=== PATIENT | female | born 1955 | race Caucasian/White ===

== ENCOUNTER → 2018-10-28 15:12 | Outpatient (CLI) | payer OTHER, SELFPAY | PROVIDERS: PCP Internal Medicine Adolescent Medicine; Visit Provider Internal Medicine Adolescent Medicine | DX: I63.9 Cerebral infarction, unspecified (principal) ==

== ENCOUNTER → 2018-10-29 08:41 | Outpatient (CLI) | payer OTHER, SELFPAY ==
--- NOTE | 2018-10-29 08:43 | MR_ITS ---
MR head/brain wo con HISTORY: ITS.REASON: ACUTE ISCHEMIC STROKE ORDERING PHYSICIAN: John Terrell MD PATIENT AGE: 63 years Comparison: 07/18/2018. TECHNIQUE: Standard multiplanar multiecho sequences are performed without contrast. FINDINGS: There are no areas are restricted diffusion. There is no mass, acute hemorrhage or extra-axial fluid collection. An Ventricles, sulci, cortical areas and brain stem structures are normal. There is a 2 mm focus of CSF signal involving the proximal left parietal deep white matter. There is no surrounding FLAIR signal in this area. There are a few other punctate foci measuring 1 or 2 mm in size in the frontal and parietal deep white matter areas bilaterally. Visualized vessels are patent and the area of the foramen magnum is normal. Visualized optic pathway structures appear normal. Impression: No acute process and no acute infarctions. White matter findings are very nonspecific and could be from mild chronic microvascular ischemic change or sequela of migraine headache. 2.0 mm deep left proximal parietal white matter findings could be old lacunar infarct or prominent perivascular space.
== END ==
PROVIDERS: PCP Internal Medicine Adolescent Medicine; Visit Provider Internal Medicine Adolescent Medicine
DX: I63.9 Cerebral infarction, unspecified (principal)
CPT/HCPCS: 70551

== ENCOUNTER → 2019-03-23 08:08 | Outpatient (CLI) | payer OTHER, SELFPAY ==
--- NOTE | 2019-03-23 08:11 | CT_ITS ---
PROCEDURE: CT LUNG SCREENING CLINICAL INDICATION: HX TOBACCO USE Forty-seven pack-year smoking history, asymptomatic for lung cancer COMPARISON: No exams were available for comparison TECHNIQUE: The exam was performed on a GE Light Speed [address] scanner using 2.90 mGy CTDI. A low dose helical CT CHEST was performed on a multi-detector scanner. All CT scans at the facility use one or more dose reduction, viz: automated exposure control, ma/kV adjustment per patient size (including targeted exams where dose is matched to indication, i.e. head), or iterative reconstruction technique. The LDCT was performed in a facility that meets the criteria for the screening program. Data regarding this exam was submitted to ACR which is an approved registry. The order for this exam indicates that it came as a result of a lung cancer screening counseling shard decision-making visit that included all the elements required of such a visit including smoking cessation. The radiologist interpreting this exam meets the CMS criteria for the LDCT lung cancer screening program. The exam is reported using the Lung-RADS classification scale and reported to the ACR registry. NOTE: This study was performed for the specific purposes of lung cancer screening and is not an alternative to diagnostic chest CT. RADIATION DOSE: CTDI vol(CT dose Index-volume) = 2.90mG DLP (Dose Length Product) = 91.58 mGcm FINDINGS: No suspicious nodules. Small hiatal hernia. Fatty liver. COPD. Old granulomatous disease. There is sclerosis of the T10 vertebral body on the right nonspecific OTHER FINDINGS: No other pertinent findings evident. IMPRESSION: Lung rads category 1, negative Recommend 12 month LDCT Dictated by: Gentry Shafer MD 03/28/2019 20:37 Electronically signed by Gentry Shafer MD in [place] 03/28/2019 20:37
--- NOTE | 2019-03-23 08:11 | MM_ITS ---
PROCEDURE: MM DIG SCREENING MAMM BI W/CAD CLINICAL INDICATION: SCREENING There is no personal or family history of breast cancer COMPARISON: No exams were available for comparison TECHNIQUE: Standard CC and MLO images were obtained. R2 CAD reviewed. FINDINGS: Diffuse fibroglandular densities are seen the central portions of both breasts. There is a mole marker left breast. There is a questionable area of architectural distortion just deep to the nipple right breast with associated microcalcifications. These calcifications appear most typical of sclerosing adenosis but without previous studies available for comparison would recommend patient return for spot compression magnification views of the area marked on the film, ultrasound may be helpful as well if this proves to be a true lesion. There are normal appearing nodes in both axilla. IMPRESSION: Fibrofatty parenchyma with possible asymmetric density versus architectural distortion right breast BI-RAD Category: 0 Need Additional Imaging Evaluation FOLLOW-UP: IMM Immediate Follow-up Recommended (A letter has been sent to the patient regarding results of the study.) Dictated by: Dr. Castillo Mcclain MD 03/24/2019 20:[address] Castillo Mcclain MD in [place] 03/24/2019 20:24
== END ==
PROVIDERS: PCP Internal Medicine Adolescent Medicine; Visit Provider Internal Medicine Adolescent Medicine
DX: Z87.891 Personal history of nicotine dependence (principal); Z12.2 Encounter for screening for malignant neoplasm of respiratory organs; Z12.31 Encounter for screening mammogram for malignant neoplasm of breast
CPT/HCPCS: 77067

== ENCOUNTER → 2019-04-02 09:21 | Outpatient (CLI) | payer OTHER, SELFPAY ==
--- NOTE | 2019-04-02 09:26 | XR_ITS ---
PROCEDURE: XR DEXA AXIAL SKELETON CLINICAL HISTORY: POST MENOPAUSAL SCREENING COMPARISON: No exams were available for comparison FINDINGS: Lumbar spine (L1 through L4), BMD 0.827, T-score -2.0 Left hip (neck), BMD 0.528, T-score -2.9. Left hip (Total), BMD 0.661, T-score -2.3. IMPRESSION: Osteoporosis. Dictated by: Ky Pope 04/02/2019 11:24 Electronically signed by Ky Pope in [place] 04/02/2019 11:24
--- NOTE | 2019-04-02 10:22 | MM_ITS ---
PROCEDURE: MM DIG MAMM DX UNILAT RT CAD CLINICAL INDICATION: ABNORMAL MAMM COMPARISON: MM DIG SCREENING MAMM BI W/CAD from 03/23/2019 TECHNIQUE: Magnification views right breast. FINDINGS: The questionable area of architectural distortion seen on the mammogram of 03/23/2019 is better seen on the magnification views and I feel simply represents asymmetric glandular elements. There are several microcalcifications which appear to be typical sclerosing adenosis. There is no suspicious cluster of microcalcifications. There is no mass. However since this is a baseline study I would recommend patient return for six-month follow-up magnification views to evaluate for interval stability. IMPRESSION: Mildly asymmetric glandular elements central portion right breast with show shaded microcalcifications most typical of sclerosing adenosis BI-RAD Category: 3 Probably Benign Finding Short Term Follow-up FOLLOW-UP: 6M 6Month Follow-up (A letter has been sent to the patient regarding results of the study.) Dictated by: Dr. Castillo Mcclain MD 04/09/2019 11:[address] Castillo Mcclain MD in [place] 04/09/2019 11:27
== END ==
PROVIDERS: PCP Internal Medicine Adolescent Medicine; Visit Provider Internal Medicine Adolescent Medicine
DX: Z13.820 Encounter for screening for osteoporosis (principal); Z78.0 Asymptomatic menopausal state; R92.8 Other abnormal and inconclusive findings on diagnostic imaging of breast
CPT/HCPCS: 77065; 77080

== ENCOUNTER → 2020-06-16 10:07 | Outpatient (CLI) | payer OTHER, SELFPAY ==
--- NOTE | 2020-06-16 10:11 | MM_ITS ---
PROCEDURE: MM DIG SCREENING MAMM BI W/CAD Digital Breast Tomosynthesis Included CLINICAL INDICATION: SCREENING There is no personal or family history of breast cancer. COMPARISON: MG MM DIG SCREENING MAMM BI W/CAD from 03/23/2019 MG MM DIG MAMM DX UNILAT RT CAD from 04/02/2019 TECHNIQUE: Standard CC and MLO images and 3D Tomosynthesis was obtained. R2 CAD reviewed. FINDINGS: Mild scattered fibroglandular densities are seen in the central portions of both breast. There is a mole marker on each breast and there is a benign-appearing microcalcification right breast. There is no suspicious lesion in either breast and no suspicious microcalcifications. IMPRESSION: . fibrofatty parenchyma with no suspicious lesions seen BI-RAD Category: 2 Benign Finding(s) FOLLOW-UP: 1YR 1 Year Follow-up (A letter has been sent to the patient regarding results of the study.) Dictated by: Dr. Castillo Mcclain MD 06/24/2020 10:15 Dr. Castillo Mcclain MD in [place] 06/24/2020 10:15
== END ==
PROVIDERS: PCP Internal Medicine Adolescent Medicine; Visit Provider Internal Medicine Adolescent Medicine
DX: Z12.31 Encounter for screening mammogram for malignant neoplasm of breast (principal)
CPT/HCPCS: 77063; 77067

== ENCOUNTER → 2020-07-20 07:42 | Outpatient (CLI) | payer OTHER, SELFPAY ==
--- NOTE | 2020-07-20 07:47 | CT_ITS ---
PROCEDURE: CT LUNG SCREENING CLINICAL INDICATION: H/O NICOTINE DEPENDENCE Former smoker Quit smoking 2 years ago 52.5 pack year smoking history COMPARISON: CT CT LUNG SCREENING from 03/23/2019 TECHNIQUE: The exam was performed on a GE Light Speed [address] scanner using 2.90 mGy CTDI. A low dose helical CT CHEST was performed on a multi-detector scanner. All CT scans at the facility use one or more dose reduction, viz: automated exposure control, ma/kV adjustment per patient size (including targeted exams where dose is matched to indication, i.e. head), or iterative reconstruction technique. The LDCT was performed in a facility that meets the criteria for the screening program. Data regarding this exam was submitted to ACR which is an approved registry. The order for this exam indicates that it came as a result of a lung cancer screening counseling shard decision-making visit that included all the elements required of such a visit including smoking cessation. The radiologist interpreting this exam meets the CMS criteria for the LDCT lung cancer screening program. The exam is reported using the Lung-RADS classification scale and reported to the ACR registry. NOTE: This study was performed for the specific purposes of lung cancer screening and is not an alternative to diagnostic chest CT. RADIATION DOSE: CTDI vol(CT dose Index-volume) = 2.90mG DLP (Dose Length Product) = 101.07 mGcm FINDINGS: COPD. Calcified granuloma right lower lobe anteriorly and superiorly. No suspicious nodules. OTHER FINDINGS: Hiatal hernia. Coronary artery calcifications. Scattered small axillary lymph nodes. Mild nonspecific thickening of the distal esophagus. Fatty liver. IMPRESSION: Lung-RADS Category 1 Negative Follow-up: Continue annual screening with LDCT in 12 months Dictated by: Gentry Shafer MD 07/24/2020 16:17 Gentry Shafer MD in [place] 07/24/2020 16:17
== END ==
PROVIDERS: PCP Internal Medicine Adolescent Medicine; Visit Provider Internal Medicine Adolescent Medicine
DX: Z87.891 Personal history of nicotine dependence (principal); Z12.2 Encounter for screening for malignant neoplasm of respiratory organs
CPT/HCPCS: 71271

== ENCOUNTER → 2020-09-20 10:40 | Outpatient (CLI) | payer MEDICARE, SELFPAY ==
--- NOTE | 2020-09-20 10:45 | XR_ITS ---
PROCEDURE: XR ANKLE LT MIN 3V CLINICAL INDICATION: ACUTE LT ANKLE PAIN COMPARISON: No exams were available for comparison FINDINGS: There are mild diffuse degenerative changes and mild soft tissue swelling about the ankle joint. No definite acute fracture or dislocation. If the patient has persistent pain, consider CT or MRI for further assessment. Ankle joint mortise appears intact. IMPRESSION: Mild diffuse degenerative changes and mild soft tissue swelling about the ankle joint with no definite acute fracture or dislocation. See comment above. Dictated by: Emiliano Ponce MD 09/20/2020 12:38 Emiliano Ponce MD in [place] 09/20/2020 12:38
== END ==
PROVIDERS: PCP Internal Medicine Adolescent Medicine; Visit Provider Internal Medicine Adolescent Medicine
DX: M25.572 Pain in left ankle and joints of left foot (principal)
CPT/HCPCS: 73610

== ENCOUNTER → 2020-11-08 08:33 | Outpatient (CLI) | payer MEDICARE, SELFPAY ==
[2020-11-08 09:20] LABS: Basophils # 0.1 K/mm3 (0-0.2); Basophils % 0.9 % (0.1-2.0); Eosinophils # 0.1 K/mm3 (0.0-0.4); Eosinophils % 1.4 % (0.1-12.0); Hematocrit 38.7 % (37.0-47.0); Lymphocytes # 2.5 K/mm3 (0.7-4.5); Lymphocytes % 25.5 % (10-50); Mean Corpuscular HGB Conc 33.4 g/dL (31.8-35.4); Mean Corpuscular Hemoglobin 29.6 pg (27.0-31.2); Mean Corpuscular Volume 88.4 fl (81-99); Mean Platelet Volume 7.3 fl (7.4-10.4); Monocytes # 0.4 K/mm3 (0.1-1.0); Monocytes % 3.6 % (1.7-9.3); Neutrophils # 6.8 K/mm3 (1.8-7.8); Neutrophils % 68.7 % (37.0-80.0); Platelet Count 353 K/mm3 (142-424); Red Blood Count 4.38 M/mm3 (4.20-5.40); White Blood Count 9.9 K/mm3 (4.8-10.8)
[2020-11-08 09:33] LABS: Hemoglobin A1C 6.7 % (4.0-6.0)
[2020-11-08 10:06] LABS: Chloride 105 mmol/L (98-107)
[2020-11-08 10:07] LABS: Potassium 4.6 mmoL/L (3.5-5.1); Sodium 142 mmol/L (136-145)
[2020-11-08 10:09] LABS: Alanine Aminotransferase 27 U/L (12-78); Alkaline Phosphatase 87 U/L (38-126); Anion Gap 17.6 mEq/L (5-15); Aspartate Amino Transferase 28 U/L (14-36); Bilirubin,Total 0.3 mg/dl (0.2-1.3); Blood Urea Nitrogen 16 mg/dl (7-17); Carbon Dioxide 24 mmol/L (22.0-30.0); Cholesterol 154 mg/dl (140-200); Estimated Glomerular Filt Rate 84 ml/min (>60); GFR (African American) 102 ML/MIN (>60); Triglycerides 105 mg/dl (30-150); VLDL Cholesterol 21 mg/dL (0-40)
[2020-11-08 10:10] LABS: Albumin Level 4.8 g/dl (3.5-5.0); Albumin/Globulin Ratio 1.5 (1.1-1.8); Calcium 9.3 mg/dl (8.4-10.2); Globulin 3.1 g/dL (1.3-3.2); Glucose 143 mg/dl (74-100); HDL Cholesterol 52 mg/dl (40-60); Total Protein,Serum 7.9 g/dl (6.3-8.2)
[2020-11-08 10:24] LABS: Direct LDL Cholesterol 78.28 mg/dL (100-129)
[2020-11-08 10:33] LABS: 25-OH Vitamin D, Total 41.6 ng/mL (30-100)
== END ==
PROVIDERS: PCP Internal Medicine Adolescent Medicine; Visit Provider Internal Medicine Adolescent Medicine
DX: Z00.00 Encounter for general adult medical examination without abnormal findings (principal); E78.5 Hyperlipidemia, unspecified; M81.0 Age-related osteoporosis without current pathological fracture; Z79.899 Other long term (current) drug therapy
CPT/HCPCS: 36415; 80053; 80061; 82306; 83036; 85025

== ENCOUNTER → 2022-01-05 10:45 | Outpatient (CLI) | payer MEDICARE, SELFPAY | PROVIDERS: PCP Internal Medicine Adolescent Medicine; Visit Provider Internal Medicine Adolescent Medicine | DX: R30.0 Dysuria (principal); B96.29 Other Escherichia coli [E. coli] as the cause of diseases classified elsewhere | CPT/HCPCS: 87086; 87088; 87186 ==

== ENCOUNTER 2023-09-10 15:25 | Outpatient (CLI) | payer MEDICARE, SELFPAY ==
[2023-09-10 15:46] LABS: Basophils # 0.1 K/mm3 (0-0.2); Basophils % 1.1 % (0.1-2.0); Eosinophils # 0.1 K/mm3 (0.0-0.4); Eosinophils % 0.8 % (0.1-12.0); Hematocrit 40.4 % (37.0-47.0); Lymphocytes # 2.5 K/mm3 (0.7-4.5); Lymphocytes % 35.6 % (10-50); Mean Corpuscular HGB Conc 32.3 g/dL (31.8-35.4); Mean Corpuscular Hemoglobin 30.1 pg (27.0-31.2); Mean Corpuscular Volume 93.1 fl (81-99); Mean Platelet Volume 7.8 fl (7.4-10.4); Monocytes # 0.3 K/mm3 (0.1-1.0); Monocytes % 4.7 % (1.7-9.3); Neutrophils # 4.1 K/mm3 (1.8-7.8); Neutrophils % 57.7 % (37.0-80.0); Platelet Count 389 K/mm3 (142-424); Red Blood Count 4.34 M/mm3 (4.20-5.40); Red Cell Distribution Width 13.7 % (11.5-17.5)
[2023-09-10 16:37] LABS: Chloride 102 mmol/L (98-107); Potassium 3.9 mmoL/L (3.5-5.1); Sodium 140 mmol/L (136-145)
[2023-09-10 16:40] LABS: Alanine Aminotransferase 57 U/L (12-78); Albumin Level 4.5 g/dl (3.5-5.0); Albumin/Globulin Ratio 1.5 (1.1-1.8); Alkaline Phosphatase 72 U/L (38-126); Anion Gap 14.9 mEq/L (5-15); Aspartate Amino Transferase 50 U/L (14-36); Bilirubin,Total 0.3 mg/dl (0.2-1.3); Blood Urea Nitrogen 18 mg/dl (7-17); Calcium 9.4 mg/dl (8.4-10.2); Carbon Dioxide 27 mmol/L (22.0-30.0); Estimated Glomerular Filt Rate 50 ml/min (>60); GFR (African American) 60 ML/MIN (>60); Globulin 3.1 g/dL (1.3-3.2); Glucose 107 mg/dl (74-100); Total Protein,Serum 7.6 g/dl (6.3-8.2)
[2023-09-10 16:41] LABS: Magnesium 1.9 mg/dl (1.6-2.3)
[2023-09-10 17:04] LABS: 25-OH Vitamin D, Total 36.5 ng/mL (30-100)
[2023-09-10 17:14] LABS: Hemoglobin A1C 6.5 % (4.0-6.0)
[2023-09-10 18:25] LABS: Vitamin B12 831 pg/mL (239-931)
[2023-09-11 14:26] LABS: Thyroid Stimulating Hormone 2.58 uIU/mL (0.465-4.68)
== END 2023-09-10 23:59 | disposition home or self-care (01) ==
LOC: LAB 15:27
PROVIDERS: PCP Internal Medicine Adolescent Medicine; Visit Provider Physician Assistant
DX: E11.9 Type 2 diabetes mellitus without complications (principal); E55.9 Vitamin D deficiency, unspecified; A08.4 Viral intestinal infection, unspecified; Z86.69 Personal history of other diseases of the nervous system and sense organs; R53.83 Other fatigue
CPT/HCPCS: 36415; 80050; 80053; 82306; 82607; 83036; 83735; 84443; 85025

== ENCOUNTER 2023-10-15 07:54 | Outpatient (CLI) | payer MEDICARE, SELFPAY ==
[2023-10-15 08:50] VITALS: PULSE 67; PULSE 70
[2023-10-15] MEDS: ALBUTEROL 0.083% 2.5 MG/3 ML NEB IH (08:50)
== END 2023-10-15 23:59 | disposition home or self-care (01) ==
LOC: RT 07:55
PROVIDERS: PCP Internal Medicine Adolescent Medicine; Visit Provider Internal Medicine Adolescent Medicine
DX: Z87.891 Personal history of nicotine dependence (principal)
CPT/HCPCS: 94060; 94640; 94726; 94729; J7613

== ENCOUNTER 2023-11-04 08:24 | Outpatient (CLI) | payer MEDICARE, SELFPAY ==
--- NOTE | 2023-11-04 08:28 | MM_ITS ---
PROCEDURE INFORMATION: Exam: MG Bilateral Screening 3D Mammography Exam date and time: 11/04/2023 8:16 AM Age: 68 years old Clinical indication: Screening mammogram TECHNIQUE: Imaging protocol: Bilateral Screening tomosynthesis and 2D mammography including computer-aided detection (CAD) when performed. COMPARISON: 1. MG MM DIG SCREENING MAMM BI W/CAD 06/16/2020 10:28 AM 2. MG MM DIG MAMM DX UNILAT RT CAD 04/02/2019 10:33 AM 3. MG MM DIG SCREENING MAMM BI W/CAD 03/23/2019 8:49 AM FINDINGS: MAMMOGRAPHY: Breast composition: There are scattered areas of fibroglandular density. Mass: None. Architectural distortion: No new or suspicious architectural distortion. Calcifications: No new or suspicious calcifications are present Asymmetric density: No new or suspicious asymmetric density is present Skin thickening: None. Axillary adenopathy: None. IMPRESSION: No mammographic evidence of malignancy. Recommend annual screening mammography unless otherwise clinically indicated. ASSESSMENT: BI-RADS category 1: Negative.
--- NOTE | 2023-11-04 08:29 | CT_ITS ---
FINAL REPORT TECHNIQUE: Thin section axial images were obtained from the lung apices to the upper abdomen by computed tomography. Reformatted images were obtained and reviewed. This study was performed with techniques to keep radiation doses al low as reasonably achievable (ALARA). Individualized dose reduction techniques using automated exposure control or adjustment of mA and/or kV according to the patient's size were employed. CLINICAL HISTORY: SCREENING former smoker x 6 years 1 ppd x 45 years dose report sent COMPARISON: 07/20/2020 FINDINGS: CHEST CT LOW DOSE 68-year-old female, former smoker who quit 6 years ago, [id number] history. CTDI vol (mGy): 2.7 DLP (mGy-cm): 86.2 There is no axillary adenopathy. There is no mediastinal or hilar mass or adenopathy. The heart is normal in size. There is no pericardial or pleural effusion. Lung window images demonstrate a calcified granuloma in the anterior aspect of the right lower lobe. No new mass or nodule is identified.. Limited images of the upper abdomen reveal a small hiatal hernia. There is also fatty infiltration of the liver present.. IMPRESSION: Lung-RADS category 1. Recommend 12 month follow up low dose chest CT. Reviewed, Interpreted and Dictated by Farshad Olson MD Transcribed by Heather Ribera Authenticated and [facility]
--- NOTE | 2023-11-04 08:30 | XR_ITS ---
FINAL REPORT TECHNIQUE: Bone densitometry calculations of the lumbar spine and left hip were obtained. CLINICAL HISTORY: SCREENING COMPARISON: 06/03/2018 FINDINGS: Using L1-4, the bone mineral density of the spine is 0.871 g/cm2, corresponding to T-score of -1.6. Using the left hip, the bone mineral density of the femoral neck is 0.548 g/cm2, corresponding to a T-score of -2.7. NOTE: T-score: Standard deviation compared with peak bone mass of young adult mean. *Following the recommendations of the International Society of Bone densitometry, classification of hip BMD is based on the lower of two T-scores; total hip or femoral neck. IMPRESSION: Diminished bone mineral density of left hip consistent with osteoporosis. Diminished bone mineral density of the lumbar spine consistent with osteopenia. Reviewed, Interpreted and Dictated by Farshad Olson MD Transcribed by Heather Ribera Authenticated and [facility]
== END 2023-11-04 23:59 | disposition home or self-care (01) ==
LOC: RAD 08:24
PROVIDERS: PCP Internal Medicine Adolescent Medicine; Visit Provider Internal Medicine Adolescent Medicine
DX: R92.8 Other abnormal and inconclusive findings on diagnostic imaging of breast (principal); M81.0 Age-related osteoporosis without current pathological fracture; Z87.891 Personal history of nicotine dependence
CPT/HCPCS: 71271; 77063; 77067; 77080

== ENCOUNTER 2024-12-20 13:02 | Outpatient (CLI) | payer MEDICARE, SELFPAY ==
--- OUTSIDE RECORDS SUMMARY | 2024-07-10 17:30 | XMS_ITS ---
Author Organization [facility] Address [address] [place] [address] Care Team Providers Care Supervisor [place] Name Role Phone Lucretia Cedeño Primary Care Provider Migration, Provider Unavailable Unavailable Allergies Allergen (clinical drug ingredient) Drug/Non Drug Allergy documented on EMR Reaction Allergy Type Onset Date Status ERYC (uncoded) Unknown Allergy Activ e GANTRISIN (uncoded) Unknown Allergy Active KEFLEX (uncoded) Unknown Allergy Act mike MOST ANTIBIOTICS (uncoded) Unknown Allergy Active SARAFEM (uncoded) Unknown Allergy Ac tive TRINALIN (uncoded) Unknown Allergy A ctive guaifenesin Mucinex Unknown Drug Allergy Activ e ciprofloxacin Cipro Unknown Drug Allergy Act mike lidocaine Lidocaine seizure Drug Allergy Active azithromycin Zithromax Unknown Drug Allergy Acti ve nitrofurantoin, macrocrystals / nitrofurantoin, monohydrate Macrobid Unknown Drug Allergy Active erythromycin Erythromycin Unknown Drug Allergy A ctive ampicillin Ampicillin Unknown Drug Allergy Activ e REASON FOR VISIT [facility] To [facility] Conversion Encounter Medications Medication SIG (Take, Route, Frequency, Duration) Notes Start Date End Date Status Rosuvastatin Calcium 10 MG 1 tab(s) oral ly once a day; Duration: 90 days Active Invokana 100 MG TAKE ONE TABLET BY M OUTH EVERY DAY; Duration: 90 Active Omeprazole 20 MG 1 cap(s) orally once a day; Duration: 90 days Active buPROPion HCl ER (XL) 300 MG 1 tab(s) orally every 24 hours; Duration: 90 days Active Aspirin Low Dose 81 MG 1 tab(s) chewed o nce a day; Duration: 90 days Active Arnuity Ellipta 100 MCG/ACT 1 puff(s) in haled every 24 hours; Duration: 90 days 11/12/2023 Active Lisinopril 10 MG 1 tab(s) orally once a day; Duration: 30 days 01/21/2024 Active Encounters Encounter Location Date Provider Diagnosis [facility] [address] [place] [address] 07/10/2024 Provider Migration Type 2 diabetes mellitus with other specified complication E11.69 Assessments Encounter Date Diagnosis (ICD Code) Assessment Notes Treatment Notes Treatment Clinical Notes Section Notes 07/10/2024 Type 2 diabetes mellitus with other specified complication (ICD-10 - E11.69) Plan Of Treatment Medication Medication Name Sig Start Date Stop Date Notes Invokana 100 MG TAKE ONE TABLET BY M OUTH EVERY DAY; Duration: 90 Progress Notes * ELIFPaty FDOB: [birth year] (69 yo F)Acc No.[id number]:07/10/2024 Patient: Paty BURNETT Provider: Leandro Mora :1955 A ge:68 Y S ex:Female Date:07/10/2024 Address:[address], [place], [id number] Pcp:Lucretia Cedeño Subjective: * Chief Complaints: * [facility] Conversion Encounter. * Medical History: * Medications: T aking Aspirin Low Dose 81 MG Tablet Chewable 1 tab(s) chewed once a day , Taking buPROPion HCl ER (XL) 300 MG Tablet Extended Release 24 Hour 1 tab(s) orally every 24 hours , Taking Omeprazole 20 MG Capsule Delayed Release 1 cap(s) orally once a day , Taking Rosuvastatin Calcium 10 MG Tablet 1 tab(s) orally once a day , Taking Lisinopril 10 MG Tablet 1 tab(s) orally once a day , Taking Arnuity Ellipta 100 MCG/ACT Aerosol Powder Breath Activated 1 puff(s) inhaled every 24 hours * Allergies: A mpicillin, KEFLEX, Macrobid, TRINALIN, Cipro, GANTRISIN, Lidocaine: seizure, SARAFEM, ERYC, Erythromycin, Zithromax, Mucinex, MOST ANTIBIOTICS. Objective: * Vitals: Assessment: * Assessment: 1. T ype 2 diabetes mellitus with other specified complication - E11.69 Plan: * Treatment: * * Electronic signature of Miguel A mejía Migration on 12/20/2024 at 01:06 PM EDT Sign off status: Pending * Provider: Leandro durant Migration Date: 0 07/10/2024 Generated for Arsen ward/Maral/Georgettesmitting on: 0 12/20/2024 01:06 PM EDT
--- OUTSIDE RECORDS SUMMARY | 2024-11-29 10:15 | XMS_ITS ---
Author Organization [facility] Address [address] [place] [address] Care Team Providers Care Feather Mixer Name Role Phone Lucretia Cedeño Primary Care Provider [phone] John Terrell Unavailable [phone] Allergies Allergen (clinical drug ingredient) Drug/Non Drug [...] ampicillin Ampicillin Unknown Drug Allergy Activ e Results Component Value Reference Range Notes LIPID PANEL, STANDARD (7600) Reviewed date:12/02/2024 02:39:52 PM Interpretation: Performing Lab:[facility], [facility] Lawrencee[address] [facility]te[facility] Centervd, Butch BravoZsgpND[address] uLigi Mahoney Notes/Report: NON-FASTING; NON-FASTING; NON-FASTING; NON-FASTING; NON-FAST FASTING:YES FASTING: YES CHOLESTEROL, TOTAL 140 <200 mg/dL HDL CHOLESTEROL 53 > OR = 50 mg/dL TRIGLYCERIDES 193 <150 mg/dL LDL-CHOLESTEROL 61 Reference range: <100 Desirable range <100 mg/dL for primary prevention; <70 mg/dL for patients with CHD or diabetic patients with > or = 2 CHD risk factors. LDL-C is now calculated using the Jenny calculation, which is a validated novel method providing better accuracy than the Friedewald equation in the estimation of LDL-C. Roddy SS et al. ISABELA. 2013;310(73): 2190-0878 (http://education.Avvo.Macaw/faq/LHU752) CHOL/HDLC RATIO 2.6 <5.0 (calc) NON HDL CHOLESTEROL 87 <130 mg/dL (calc) For patients with diabetes plus 1 major ASCVD risk factor, treating to a non-HDL-C goal of <100 mg/dL (LDL-C of <70 mg/dL) is considered a therapeutic option. COMPREHENSIVE METABOLIC PANE Charley (19156) Reviewed date:12/02/2024 02:39:52 PM Interpretation: Performing Lab:[facility], [employer] [id number] [facility] HospitallibradoNewton Medical CenterButchArueNY[address] Luigi Mahoney Notes/Report: NON-FASTING; NON-FASTING; NON-FASTING; NON-FASTING; NON-FAST FASTING:YES FASTING: YES GLUCOSE 126 65-99 mg/dL Fasting reference interval For someone without known diabetes, a glucose value >125 mg/dL indicates that they may have diabetes and this should be confirmed with a follow-up test. UREA NITROGEN (BUN) 21 7-25 mg/dL CREATININE 0.79 0.50-1.05 mg/dL EGFR 81 > OR = 60 mL/min/1.73m2 BUN/CREATININE RATIO SEE NOTE: 6-22 (calc) Not Reported: BUN and Creatinine are within reference range. SODIUM 139 135-146 mmol/L POTASSIUM 3.6 3.5-5.3 mmol/L CHLORIDE 106 98-110 mmol/L CARBON DIOXIDE 21 20-32 mmol/L CALCIUM 10.0 8.6-10.4 mg/dL PROTEIN, TOTAL 7.6 6.1-8.1 g/dL ALBUMIN 4.6 3.6-5.1 g/dL GLOBULIN 3.0 1.9-3.7 g/dL (calc) ALBUMIN/GLOBULIN RATIO 1.5 1.0-2.5 (calc) BILIRUBIN, TOTAL 0.3 0.2-1.2 mg/dL ALKALINE PHOSPHATASE 79 37-153 U/L AST 18 10-35 U/L ALT 19 6-29 U/L CBC (INCLUDES DIFF/PLT) (639 9) Reviewed date:12/02/2024 02:39:52 PM Interpretation: Performing Lab:[facility] [employer]-[address] PressMatrixte[address], [employer] InternationalPevdFE[address] Luigi Mahoney Notes/Report: NON-FASTING; NON-FASTING; NON-FASTING; NON-FASTING; NON-FAST FASTING:YES FASTING: YES WHITE BLOOD CELL COUNT 8.1 3.8-10.8 Thousand/ uL RED BLOOD CELL COUNT 4.33 3.80-5.10 Million/uL HEMOGLOBIN 12.9 11.7-15.5 g/dL HEMATOCRIT 40.4 35.0-45.0 % MCV 93.3 80.0-100.0 fL MCH 29.8 27.0-33.0 pg MCHC 31.9 32.0-36.0 g/dL For adults, a slight decrease in the calculated MCHC value (in the range of 30 to 32 g/dL) is most likely not clinically significant; however, it should be interpreted with caution in correlation with other red cell parameters and the patient's clinical condition. RDW 13.1 11.0-15.0 % PLATELET COUNT 306 140-400 Thousand/uL MPV 10.3 7.5-12.5 fL ABSOLUTE NEUTROPHILS 5152 2649-1712 cells/uL ABSOLUTE LYMPHOCYTES 2203 850-3900 cells/uL ABSOLUTE MONOCYTES 527 200-950 cells/uL ABSOLUTE EOSINOPHILS 130 15-500 cells/uL ABSOLUTE BASOPHILS 89 0-200 cells/uL NEUTROPHILS 63.6 LYMPHOCYTES 27.2 MONOCYTES 6.5 EOSINOPHILS 1.6 BASOPHILS 1.1 HEMOGLOBIN A1c (496) Reviewed date:12/02/2024 02:39:52 PM Interpretation: Performing Lab:[facility] [employer]-[address] travelfox, BlueboxOosxNO[address] Luigi Mahoney Notes/Report: NON-FASTING; NON-FASTING; NON-FASTING; NON-FASTING; NON-FAST FASTING:YES FASTING: YES HEMOGLOBIN A1c 7.0 <5.7 % For someone without known diabetes, a hemoglobin A1c value of 6.5% or greater indicates that they may have diabetes and this should be confirmed with a follow-up test. For someone with known diabetes, a value <7% indicates that their diabetes is well controlled and a value greater than or equal to 7% indicates suboptimal control. A1c targets should be individualized based on duration of diabetes, age, comorbid conditions, and other considerations. Currently, no consensus exists regarding use of hemoglobin A1c for diagnosis of diabetes for children. VITAMIN D,25-OH,TOTAL,IA (17 306) Reviewed date:12/02/2024 02:39:52 PM Interpretation: Performing Lab:[facility], [employer] [id number] [facility] Hospital[address], Essent[facility] HealthFntxTK[address] Luigi Mahoney Notes/Report: NON-FASTING; NON-FASTING; NON-FASTING; NON-FASTING; NON-FAST FASTING:YES FASTING: YES VITAMIN D,25-OH,TOTAL,IA 44 30-100 ng/mL Vitamin D Status 25-OH Vitamin D: Deficiency: <20 ng/mL Insufficiency: 20 - 29 ng/mL Optimal: > or = 30 ng/mL For 25-OH Vitamin D testing on patients on D2-supplementation and patients for whom quantitation of D2 and D3 fractions is required, the QuestAssureD(TM) 25-OH VIT D, (D2,D3), LC/MS/MS is recommended: order code 74825 (patients >2yrs). See Note 1 Note 1 For additional information, please refer to http://education.Proteus Agility.Macaw/faq/JQO391 (This link is being provided for informational/ educational purposes only.) Reason For Referral Reason Dermatology Referral - Dr. Willis Diagnosis 1 Keratosis (L57.0) Referral Organization [facility] Referring Provider First Name John Referring Provider Last Name Nidhi Referring Provider Speciality Internal M edicine Referred Organization [facility] Referred Address [address] [facility], [place], [place],[address], Referred Provider Specialty Dermatology General Notes Cindi Chavez 2024 12:28:59 PM >sent to Dr. Willis Referral Priority Routine Reason [facility] ent... hoarsenes s, ex smoker Diagnosis 1 Hoarseness (R49.0) Referral Organization [facility] Referring Provider First Name John Referring Provider Last Name Nidhi Referring Provider Speciality Internal M edicine Referred Organization [facility] Referred Address [address] [facility], [place],[address], Referred Provider Specialty Otology, Lar yngology, Rhinology General Notes Cindi Chavez 2024 04:28:08 PM >Sent to ENT Referral Priority Routine REASON FOR VISIT AWV & FU Medications Medication SIG (Take, Route, Frequency, Duration) Notes Start Date End Date Status Arnuity Ellipta 100 MCG/ACT 1 puff(s) in haled every 24 hours; Duration: 90 days 11/12/2023 Active buPROPion HCl ER (XL) 300 MG 1 tab(s) orally every 24 hours; Duration: 90 days Active Aspirin Low Dose 81 MG 1 tab(s) chewed o nce a day; Duration: 90 days Active Lisinopril 10 MG 1 tab(s) orally once a day; Duration: 90 days Active Omeprazole 20 MG 1 cap orally twice a day; Duration: 90 days Active Invokana 100 mg TAKE ONE TABLET BY M OUTH EVERY DAY; Duration: 90 Active Rosuvastatin Calcium 10 MG TAKE 1 TABLET EVERY DAY; Duration: 90 Active Social History Tobacco Use: Social History Observation Description Date Details (start date - stop date) Former Smoker NA - NA Smoking: Question Answer Notes Are you a: former smoker How long has it been since you last smoked? 1-5 years Vital Signs Temperature 98.0 degrees Fahrenheit 11/30/19 25 Heart Rate 84 /min 11/29/2024 Blood pressure systolic 130 mm Hg 11/30/19 25 Blood pressure diastolic 80 mm Hg 025 Height 64 in 11/29/2024 Weight 142.6 lbs 11/29/2024 BMI 24.47 kg/m2 11/29/2024 Encounters Encounter Location Date Provider Diagnosis [facility] [address] [facility] [address] [place] [address] 11/29/2024 John Terrell Essential hypertensi on I10 ; Abnormal mammogram R92.8 ; Osteoporosis without current pathological fracture, unspecified osteoporosis type M81.0 ; Type 2 diabetes mellitus with other specified complication E11.69 ; Keratosis L57.0 ; GERD without esophagitis K21.9 ; Hoarseness R49.0 ; Hyperlipidemia, unspecified E78.5 and Routine medical exam Z00.00 Assessments Encounter Date Diagnosis (ICD Code) Assessment Notes Treatment Notes Treatment Clinical Notes Section Notes 11/29/2024 Essential hypertension (ICD-10 - I10) bp well maintained on lisinopril 10mg lisinopril 10 mg sent to pharmacy today 11/29/2024 Abnormal mammogram (ICD-10 - R92.8) mammogram orders sent today 11/29/2024 Osteoporosis without current pathological fracture, unspecified osteoporosis type (ICD-10 - M81.0) last dexa scan 2019 Labs ordered today, I will personally review labs 11/29/2024 Type 2 diabetes mellitus with other specified complication (ICD-10 - E11.69) pt currently on invokana 100mg labs drawn today, I will personally review urine microscopy done 04/2023, reviewed those labs today 11/29/2024 Keratosis (ICD-10 - L57.0) Dermatology referral sent 11/29/2024 GERD without esophagitis (ICD-10 - K21.9) Pt has been taking omeprazole with food. Counseled pt on when and how to take omeprazole. Pt instructed to take omeprazole BID 20 minutes before breakfast and 20 minutes before dinner. Pt voices understanding. ENT referral sent today 11/29/2024 Hoarseness (ICD-10 - R49.0) hoarsness gets worse as the day progresses. Could be due to smoking history or side effect of GERD. advised pt to take omeprazole BID without food or other medications. ENT referral sent 11/29/2024 Hyperlipidemia, unspecified (ICD-10 - E78.5) pt currently on rosuvastatin 10mg no need for regimen change lipid panel drawn today 11/29/2024 Routine medical exam (ICD-10 - Z00.00) Pt has good functional status recalled 3 words no falls or concerns for falls pt has a living will discussed necessity for mammogram up to date on all other cancer screening denies flu shot pt reports good mood Plan Of Treatment Medication Medication Name Sig Start Date Stop Date Notes Lisinopril 10 MG 1 tab(s) orally once a day; Duration: 90 days Omeprazole 20 MG 1 cap orally twice a day; Duration: 90 days Treatment Notes Assessment Notes Essential hypertension bp well maintained on lisinopril 10mg lisinopril 10 mg sent to pharmacy today Abnormal mammogram mammogram orders sen t today Osteoporosis without current pathological fracture, unspecified osteoporosis type last dexa scan 2019 Labs ordered today, I will personally review labs Type 2 diabetes mellitus wit h other specified complication pt currently on invokana 100mg labs drawn today, I will personally review urine microscopy done 04/2023, reviewed those labs today Keratosis Dermatology referral sent GERD without esophagitis Pt has been taking omeprazole with food. Counseled pt on when and how to take omeprazole. Pt instructed to take omeprazole BID 20 minutes before breakfast and 20 minutes before dinner. Pt voices understanding. ENT referral sent today Hoarseness hoarsness gets worse as the day progresses. Could be due to smoking history or side effect of GERD. advised pt to take omeprazole BID without food or other medications. ENT referral sent Hyperlipidemia, unspecified pt currently on rosuvastatin 10mg no need for regimen change lipid panel drawn today Routine medical exam Pt has good functional status recalled 3 words no falls or concerns for falls pt has a living will discussed necessity for mammogram up to date on all other cancer screening denies flu shot pt reports good mood Pending Test Test Name Order Date Mammogram : Diagnostic 11/29/2024 Referrals Referral Date Details 11/29/2024 11/29/2024, Dermatol ogy Referral - Dr. Willis, [address] [facility] [place], [address], 11/29/2024 11/29/2024, [facility] ent. .. hoarseness, ex smoker, [address] [facility] [place], [address], Next Appt Details Follow Up: 4 Months, Reason: Progress Notes * Janelle RODRIGUEZa FDOB: [birth year] (69 yo F)Acc No.[id number]:11/29/2024 Progress notes Patient: Paty BURNETT Provider: Iván Terrell MD :1955 A ge:69 Y S ex:Female Date:11/29/2024 Address:[address] [place] [address] [id number] Pcp:Lucretia Cedeño Subjective: * Chief Complaints: * 1 . AWV & FU. * HPI: g en: Paty is here today for her annual wellness exam. 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 She has been experiencing a raspy voice that gets worse as the day goes on. She has a history of tobacco use and GERD. She is still taking invokana no side effects of UTI or yeast infections. She did a cologuard then colonoscopy. Reports a good mood. * Medical History: A nxiety/depression, Fibromyalgia, Arthritis, Tobacco use, occipital/parietal right-sided stroke July 2018, negative low-dose CT scan in 03/25 and 10/2023, normal Pap smear March 2019, mammogram June 25 normal and normal 10/2023, DEXA scan March 2019 of osteoporosis-alendronate started - slightly improved T score in 10/2023, positive cologuard screening March 2019, colonoscopy with isolated hyperplastic polyp. * Surgical History: c -section x 3 . * Hospitalization/Major Diagno stic Procedure: maria guadalupe hernandez CVA- 07/2018. * Family History: F ather: 57 yrs, lung cancer, diagnosed with Cancer. M other: 42 yrs, ovarian ca, diagnosed with Cancer. P aternal Grand Father: . P aternal Grand Mother: . M aternal Grand Father: . M aternal Grand Mother: . P aternal uncle: . P aternal aunt: alive. M aternal uncle: . M aternal aunt: alive. Siblings: alive, diagnosed with Diabetes, Heart Disease. C orestes: alive, son-CKD/transplant, diagnosed with Hypertension. 2 brother(s) , 1 sister(s) . 1 son(s) , 2 daughter(s) . .? * Social History: S moking A re you a: f ormer smoker, H ow long has it been since you last smoked??1-5 years. R ecreational drug use: no. Exercise: no. Home smoke detector use: yes. Caffeine: yes, frequency: pepsi daily. Living Will: No. Alcohol: no. Sexually active: no. Travel outside [place]: no. Occupation: retired. * Medications: T aking Aspirin Low Dose 81 MG Tablet Chewable 1 tab(s) chewed once a day , Taking buPROPion HCl ER (XL) 300 MG Tablet Extended Release 24 Hour 1 tab(s) orally every 24 hours , Taking Omeprazole 20 MG Capsule Delayed Release 1 cap(s) orally once a day , Taking Arnuity Ellipta 100 MCG/ACT Aerosol Powder Breath Activated 1 puff(s) inhaled every 24 hours , Taking Rosuvastatin Calcium 10 MG Tablet TAKE 1 TABLET EVERY DAY , Taking Lisinopril 10 MG Tablet 1 tab(s) orally once a day , Taking Invokana 100 mg Tablet TAKE ONE TABLET BY MOUTH EVERY DAY , Medication List reviewed and reconciled with the patient * Allergies: A mpicillin, KEFLEX, Macrobid, TRINALIN, Cipro, GANTRISIN, Lidocaine: seizure, SARAFEM, ERYC, Erythromycin, Zithromax, Mucinex, MOST ANTIBIOTICS. Objective: * Vitals: N urse: KJ, Pain: 0, Temp: 98.0, RR: 16, HR: 84, BP: 130/80, Ht: 64, Wt: 142.6, BMI:24.47. * Examination: G eneral Examination: General P leasant and Cooperative, NAD on RA,. Heart: R egular Rate and Rhythm, no murmur, rubs or gallops. Lungs: L CTAB, No wheezes, crackles or rhonchi, Good air movement,. Skin: w ithout acute rashes. Assessment: * Assessment: 1. E ssential hypertension - I10 (Primary) 2 . A bnormal mammogram - R92.8? 3. O steoporosis without current pathological fracture, unspecified osteoporosis type - M81.0 4 . T ype 2 diabetes mellitus with other specified complication - E11.69 5 . K eratosis - L57.0 6 . G ERD without esophagitis - K21.9 7 . H oarseness - R49.0 8 . H yperlipidemia, unspecified - E78.5 9 . R outine medical exam - Z00.00 Plan: * Treatment: 2. A bnormal mammogram I maging: Mammogram : Diagnostic Notes: mammogram orders sent today??3.?Osteoporosis without current pathological fracture, unspecified osteoporosis type?LAB: LIPID PANEL, STANDARD (7600)* Value Reference Range T RIGLYCERIDES 193 H <150 - mg/dL * C HOLESTEROL, TOTAL 140 <200 - mg/dL * H DL CHOLESTEROL 53 > OR = 50 - mg/dL * L DL-CHOLESTEROL 61 - mg/dL (calc) * C HOL/HDLC RATIO 2.6 <5.0 - (calc) * N ON HDL CHOLESTEROL 87 <130 - mg/dL (calc) * Peg High 12/02/2024 02:39:43 PM EDT > Patient informedThis lab was reviewed by Peg High on 12/02/2024 at 14:39 PM EDT ?LAB: COMPREHENSIVE METABOLIC PANEL (67824)* Value Reference Range G LUCOSE 126 H 65-99 - mg/dL * U CHRISTOPHER NITROGEN (BUN) 21 7-25 - mg/dL * C REATININE 0.79 0.50-1.05 - mg/dL * B UN/CREATININE RATIO SEE NOTE: 6-22 - (calc) * S ODIUM 139 135-146 - mmol/L * P OTASSIUM 3.6 3.5-5.3 - mmol/L * C HLORIDE 106 98-110 - mmol/L * C ARBON DIOXIDE 21 20-32 - mmol/L * C ALCIUM 10.0 8.6-10.4 - mg/dL * P ROTEIN, TOTAL 7.6 6.1-8.1 - g/dL * A LBUMIN 4.6 3.6-5.1 - g/dL * G LOBULIN 3.0 1.9-3.7 - g/dL (calc ) * A LBUMIN/GLOBULIN RATIO 1.5 1.0-2.5 - (calc) * B ILIRUBIN, TOTAL 0.3 0.2-1.2 - mg/dL * A LKALINE PHOSPHATASE 79 37-153 - U/L * A ST 18 10-35 - U/L * A LT 19 6-29 - U/L * E GFR 81 > OR = 60 - mL/min/1 .73m2 * Peg High 12/02/2024 02:39:43 PM EDT > Patient informedThis lab was reviewed by ePg High on 12/02/2024 at 14:39 PM EDT ?LAB: CBC (INCLUDES DIFF/PLT) (7588)* Value Reference Range W ZULEMA BLOOD CELL COUNT 8.1 3.8-10.8 - Thousan d/uL * R ED BLOOD CELL COUNT 4.33 3.80-5.10 - Million/ uL * H EMOGLOBIN 12.9 11.7-15.5 - g/dL * H EMATOCRIT 40.4 35.0-45.0 - % * M CV 93.3 80.0-100.0 - fL * M CH 29.8 27.0-33.0 - pg * M CHC 31.9 L 32.0-36.0 - g/dL * R DW 13.1 11.0-15.0 - % * P LATELET COUNT 306 140-400 - Thousand/u L * N EUTROPHILS 63.6 - % * A BSOLUTE NEUTROPHILS 5152 7681-3332 - cells/uL * L YMPHOCYTES 27.2 - % * A BSOLUTE LYMPHOCYTES 2203 850-3900 - cells/uL * M ONOCYTES 6.5 - % * A BSOLUTE MONOCYTES 527 200-950 - cells/uL * E OSINOPHILS 1.6 - % * A BSOLUTE EOSINOPHILS 130 15-500 - cells/uL * B ASOPHILS 1.1 - % * A BSOLUTE BASOPHILS 89 0-200 - cells/uL * M PV 10.3 7.5-12.5 - fL * Peg High 12/02/2024 02:39:43 PM EDT > Patient informedThis lab was reviewed by Peg High on 12/02/2024 at 14:39 PM EDT ?LAB: HEMOGLOBIN A1c (496)* Value Reference Range H EMOGLOBIN A1c 7.0 H <5.7 - % * Peg High 12/02/2024 02:39:43 PM EDT > Patient informedThis lab was reviewed by Peg High on 12/02/2024 at 14:39 PM EDT ?LAB: VITAMIN D,25-OH,TOTAL,IA (12390)* Value Reference Range V ITAMIN D,25-OH,TOTAL,IA 44 30-100 - ng/mL * Peg High 12/02/2024 02:39:43 PM EDT > Patient informedThis lab was reviewed by Peg High on 12/02/2024 at 14:39 PM EDT Notes: last dexa scan 2019 Labs ordered today, I will personally review labs ??4.?Type 2 diabetes mellitus with other specified complication?LAB: LIPID PANEL, STANDARD (7600)* Value Reference Range T RIGLYCERIDES 193 H <150 - mg/dL * C HOLESTEROL, TOTAL 140 <200 - mg/dL * H DL CHOLESTEROL 53 > OR = 50 - mg/dL * L DL-CHOLESTEROL 61 - mg/dL (calc) * C HOL/HDLC RATIO 2.6 <5.0 - (calc) * N ON HDL CHOLESTEROL 87 <130 - mg/dL (calc) * Peg High 12/02/2024 02:39:43 PM EDT > Patient informedThis lab was reviewed by Peg High on 12/02/2024 at 14:39 PM EDT ?LAB: COMPREHENSIVE METABOLIC PANEL (15852)* Value Reference Range G LUCOSE 126 H 65-99 - mg/dL * U CHRISTOPHER NITROGEN (BUN) 21 7-25 - mg/dL * C REATININE 0.79 0.50-1.05 - mg/dL * B UN/CREATININE RATIO SEE NOTE: 6-22 - (calc) * S ODIUM 139 135-146 - mmol/L * P OTASSIUM 3.6 3.5-5.3 - mmol/L * C HLORIDE 106 98-110 - mmol/L * C ARBON DIOXIDE 21 20-32 - mmol/L * C ALCIUM 10.0 8.6-10.4 - mg/dL * P ROTEIN, TOTAL 7.6 6.1-8.1 - g/dL * A LBUMIN 4.6 3.6-5.1 - g/dL * G LOBULIN 3.0 1.9-3.7 - g/dL (calc ) * A LBUMIN/GLOBULIN RATIO 1.5 1.0-2.5 - (calc) * B ILIRUBIN, TOTAL 0.3 0.2-1.2 - mg/dL * A LKALINE PHOSPHATASE 79 37-153 - U/L * A ST 18 10-35 - U/L * A LT 19 6-29 - U/L * E GFR 81 > OR = 60 - mL/min/1 .73m2 * Peg High 12/02/2024 02:39:43 PM EDT > Patient informedThis lab was reviewed by Peg High on 12/02/2024 at 14:39 PM EDT ?LAB: CBC (INCLUDES DIFF/PLT) (6399)* Value Reference Range W ZULEMA BLOOD CELL COUNT 8.1 3.8-10.8 - Thousan d/uL * R ED BLOOD CELL COUNT 4.33 3.80-5.10 - Million/ uL * H EMOGLOBIN 12.9 11.7-15.5 - g/dL * H EMATOCRIT 40.4 35.0-45.0 - % * M CV 93.3 80.0-100.0 - fL * M CH 29.8 27.0-33.0 - pg * M CHC 31.9 L 32.0-36.0 - g/dL * R DW 13.1 11.0-15.0 - % * P LATELET COUNT 306 140-400 - Thousand/u L * N EUTROPHILS 63.6 - % * A BSOLUTE NEUTROPHILS 5152 6635-3359 - cells/uL * L YMPHOCYTES 27.2 - % * A BSOLUTE LYMPHOCYTES 2203 850-3900 - cells/uL * M ONOCYTES 6.5 - % * A BSOLUTE MONOCYTES 527 200-950 - cells/uL * E OSINOPHILS 1.6 - % * A BSOLUTE EOSINOPHILS 130 15-500 - cells/uL * B ASOPHILS 1.1 - % * A BSOLUTE BASOPHILS 89 0-200 - cells/uL * M PV 10.3 7.5-12.5 - fL * Peg High 12/02/2024 02:39:43 PM EDT > Patient informedThis lab was reviewed by Peg High on 12/02/2024 at 14:39 PM EDT ?LAB: HEMOGLOBIN A1c (496)* Value Reference Range H EMOGLOBIN A1c 7.0 H <5.7 - % * Peg High 12/02/2024 02:39:43 PM EDT > Patient informedThis lab was reviewed by Peg High on 12/02/2024 at 14:39 PM EDT ?LAB: VITAMIN D,25-OH,TOTAL,IA (15908)* Value Reference Range V ITAMIN D,25-OH,TOTAL,IA 44 30-100 - ng/mL * Peg High 12/02/2024 02:39:43 PM EDT > Patient informedThis lab was reviewed by Peg High on 12/02/2024 at 14:39 PM EDT Notes: pt currently on invokana 100mg labs drawn today, I will personally review urine microscopy done 04/2023, reviewed those labs today??5.?Keratosis? Notes: Dermatology referral sent ? Referral To: ?Reason:derm 6.?GERD without esophagitis? Refill Omeprazole Capsule Delayed Release, 20 MG, 1 cap, orally, twice a day, 90 days, 180 Capsule,Refills 3.?? Notes: Pt has been taking omeprazole with food. Counseled pt on when and how to take omeprazole. Pt instructed to take omeprazole BID 20 minutes before breakfast and 20 minutes before dinner. Pt voices understanding. ENT referral sent today??7.?Hoarseness? Notes: hoarsness gets worse as the day progresses. Could be due to smoking history or side effect of GERD. advised pt to take omeprazole BID without food or other medications. ENT referral sent? Referral To: ?Reason:[facility] ent... hoarseness, ex smoker 8.?Hyperlipidemia, unspecified? Notes: pt currently on rosuvastatin 10mg no need for regimen change lipid panel drawn today??9.?Routine medical exam? Notes: Pt has good functional status recalled 3 words no falls or concerns for falls pt has a living will discussed necessity for mammogram up to date on all other cancer screening denies flu shot pt reports good mood ?? * Procedure Codes: G 2211 Complex e/m visit add on, G0439 ANNUAL WELLNESS VST; PPS SUBSQT VST, 1170F FUNCTIONAL STATUS ASSESSMENT, M1371 Mst rec gsa<7, G8399 PT W/DXA DOCUMENT OR ORDER, 1123F ADVANCED DIRECTIVE - HAS A LIVING WILL, G9899 Screening diagnostic,film,digital results documented and reviewed, 3017F COLORECTAL CA SCREEN DOC REV, G8420 BMI documented as normal, no follow up required., G8510 NEGATIVE SCREENING F/U NOT REQUIRED, G9903 Pt scrn tbco id as non user, 1036F TOBACCO NON-USER, G8752 Most recent systolic blood pressure < 140mmhg, G8754 Most recent diastolic blood pressure < 90mmhg, G9744 PATIENT NOT ELIG D/T ACTIVE DX HTN * Follow Up: 4 Months * * Sign off status: Completed true * Provider: Iván Terrell MD Date: 11/29/2024 Generated for Printi ng/Favamsig/eTransmitting on: 12/20/2024 01:06 PM EDT History and Physical Notes * HPI (History of Present Illness) Category Sub-Category Detail Notes Category Not es gen Newman is here today for her annual wellness exam. 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 She has been experiencing a raspy voice that gets worse as the day goes on. She has a history of tobacco use and GERD. She is still taking invokana no side effects of UTI or yeast infections. She did a cologuard then colonoscopy. Reports a good mood. Examination Category Sub-Category Detail Notes Category Not es General Examination Heart: Regular Rate and Rhythm, no murmur, rubs or gallops Lungs: LCTAB, No wheezes, c rackles or rhonchi, Good air movement, Skin: without acute rashes General Pleasant and Coopera tive, NAD on RA, Consultation Request Notes Referral Date Referring Provider Referred Provider Not mariam 11/29/2024 John Terrell , Dermatology Referral - Dr. Willis 11/29/2024 John Terrell , [facility] ent... h oarseness, ex smoker
--- OUTSIDE RECORDS SUMMARY | 2024-11-30 08:25 | XMS_ITS ---
Author Organization [facility] PE D [place]UC[place] Address [address] [place] [address] Care Team Providers Care Candy Feeder Name Role Phone Lucretia Cedeño Primary Care Provider [phone] REASON FOR VISIT mammogram and dexa Encounters Encounter Location Date Provider Diagnosis [facility] [place] [address] [place] [address] 11/30/2024 Lucretia Cedeño Visit for screening mammogram Z12.31 and Asymptomatic menopause Z78.0 Assessments Encounter Date Diagnosis (ICD Code) Assessment Notes Treatment Notes Treatment Clinical Notes Section Notes 11/30/2024 Visit for screening mammogram (ICD-10 - Z12.31) 11/30/2024 Asymptomatic menopause (ICD-10 - Z78.0) Plan Of Treatment Pending Test Test Name Order Date DEXA Hip and Spine - Screening Mammogram : Bilateral 11/30/2024 Progress Notes * Paty RODRIGUEZ FDOB: [birth year] (69 yo F)Acc No.[id number]:11/30/2024 Patient: Milagros ELIZONDO Paty Purcell :1955 A ge:69 Y S ex:Female Address:[place], [address] Subjective: * Chief Complaints: * M ammogram and dexa * Medical History: * Surgical History: * Hospitalization/Major Diagno stic Procedure: * Medications: Objective: * Vitals: * Physical Examination: Assessment: * Assessment: 1. V isit for screening mammogram - Z12.31 2 . A symptomatic menopause - Z78.0 Plan: * Treatment: 2.?Asymptomatic menopause?Imaging: DEXA Hip and Spine - Screening* * Procedure Codes: * true * Date: Generated for Arsen ward/Maral/Lisseth on: 0 12/20/2024 01:06 PM EDT
--- OUTSIDE RECORDS SUMMARY | 2024-12-20 05:45 | XMS_ITS ---
Author Organization [facility] Address [address] [place] [address] Care Team Providers Care Synchronous Motor Assembler Name Role Phone Lucretia Cedeño Primary Care Provider John Terrell Unavailable [phone] Allergies Allergen (clinical drug ingredient) Drug/Non Drug [...] e Results Component Value Reference Range Notes Urinalysis Reviewed date:12/20/2024 11:11:16 AM Interpretation: Performing Lab: Notes/Report: Color/Clarity yellow Leuk neg Nitrite neg Urobili 0.2 Protein neg pH 5.5 Blood trace-intact Sp. Gr. 1.015 Ketone trace Bili neg Glucose >1000 REASON FOR VISIT Having a lot of stomach pain Medications Medication SIG (Take, Route, Frequency, Duration) Notes Start Date End Date Status Omeprazole 20 MG 1 cap orally twice a day; Duration: 90 days Active Invokana 100 mg TAKE ONE TABLET BY M OUTH EVERY DAY; Duration: 90 Active Lisinopril 10 MG 1 tab(s) orally once a day; Duration: 90 days Active Arnuity Ellipta 100 MCG/ACT 1 puff(s) in haled every 24 hours; Duration: 90 days 11/12/2023 Active Rosuvastatin Calcium 10 MG TAKE 1 TABLET EVERY DAY; Duration: 90 Active buPROPion HCl ER (XL) 300 MG 1 tab(s) orally every 24 hours; Duration: 90 days Active Aspirin Low Dose 81 MG 1 tab(s) chewed o nce a day; Duration: 90 days Active Problems Problem Type SNOMED Code ICD Code Onset Dates Problem Status W/U Status Risk Notes Problem Lower abdominal pain (32994905) Lower abdominal pain (R10.30) Active confirmed Vital Signs Temperature 98.3 degrees Fahrenheit 12/21/19 25 Heart Rate 80 /min 12/20/2024 Blood pressure systolic 122 mm Hg 12/21/19 25 Blood pressure diastolic 80 mm Hg 025 Height 64 in 12/20/2024 Weight 140 lbs 12/20/2024 BMI 24.03 kg/m2 12/20/2024 Encounters Encounter Location Date Provider Diagnosis [facility] [place] [address] [facility] [address] [place] [address] 12/20/2024 John Terrell Type 2 diabetes mellitus with other specified complication E11.69 and Lower abdominal pain R10.30 Assessments Encounter Date Diagnosis (ICD Code) Assessment Notes Treatment Notes Treatment Clinical Notes Section Notes 12/20/2024 Type 2 diabetes mellitus with other specified complication (ICD-10 - E11.69) pt currently on invokana 100mg urine microscopy done 04/2023, and A1c 7% 11/2024 denies issues with UTIs or fungal infections currently h 12/20/2024 Lower abdominal pain (ICD-10 - R10.30) - notes 2 days of increased lower abdominal pain and fullness/pressure, notes one bowel movement yesterday or small volume but otherwise normal consistency, notes taking one time metamucil yesterday - denies fevers, vomiting, bloody bowl movements, painful or burning urination, blood in urine, no abnormal vaginal discharge or bleeding per patient - Given pain with tenderness on palpation of suprapubic area ordered UA and negative for infection but did demonstrate trace blood on sample - will order CT A/P stone protocol to rule out stone - if negative and pain persists will have patient take laxative to help with constipation, if concerning findings on CT could further evaluate for diverticulitis h Plan Of Treatment Treatment Notes Assessment Notes Type 2 diabetes mellitus wit h other specified complication pt currently on invokana 100mg urine microscopy done 04/2023, and A1c 7% 11/2024 denies issues with UTIs or fungal infections currently Lower abdominal pain - notes 2 days of increased lower abdominal pain and fullness/pressure, notes one bowel movement yesterday or small volume but otherwise normal consistency, notes taking one time metamucil yesterday - denies fevers, vomiting, bloody bowl movements, painful or burning urination, blood in urine, no abnormal vaginal discharge or bleeding per patient - Given pain with tenderness on palpation of suprapubic area ordered UA and negative for infection but did demonstrate trace blood on sample - will order CT A/P stone protocol to rule out stone - if negative and pain persists will have patient take laxative to help with constipation, if concerning findings on CT could further evaluate for diverticulitis Pending Test Test Name Order Date CT Scan : Abdomen/Pelvis stone protocol 12/20/2024 Next Appt Details Follow Up: prn, Reason: Progress Notes * Paty RODRIGUEZ FDOB: [birth year] (69 yo F)Acc No.[id number]:12/20/2024 Progress Notes Patient: Paty BURNETT Provider: Iván Terrell MD :1955 A ge:69 Y S ex:Female Date:12/20/2024 Address:[address] [place] [address], [place], [id number] Pcp:Lucretia Cedeño Subjective: * Chief Complaints: * 1 . Having a lot of stomach pain. * HPI: g en: Patient notes today she is having two days of increased lower abdominal pain. She denies fevers, chills or vomiting but has noticed increased nausea. She denies temporal relation of abdominal pain to meals but does not it becomes more bothersome at the end of the day. She denies heavy lifting, blood in stool or urine, painful or burning urination. She notes she is passing gas and had one bowel movement yesterday morning but was small volume and otherwise normal. She endorses an increase in pressure in the lower abdomen at this time. * Medical History: A nxiety/depression, Fibromyalgia, Arthritis, Tobacco use, occipital/parietal right-sided stroke July 2018, negative low-dose CT scan in 03/25 and 10/2023, normal Pap smear March 2019, mammogram June 25 normal and normal 10/2023, DEXA scan March 2019 of osteoporosis-alendronate started - slightly improved T score in 10/2023, positive cologuard screening March 2019, colonoscopy with isolated hyperplastic polyp. * Medications: T aking Aspirin Low Dose 81 MG Tablet Chewable 1 tab(s) chewed once a day , Taking Arnuity Ellipta 100 MCG/ACT Aerosol Powder Breath Activated 1 puff(s) inhaled every 24 hours , Taking Rosuvastatin Calcium 10 MG Tablet TAKE 1 TABLET EVERY DAY , Taking Invokana 100 mg Tablet TAKE ONE TABLET BY MOUTH EVERY DAY , Taking Omeprazole 20 MG Capsule Delayed Release 1 cap orally twice a day , Taking Lisinopril 10 MG Tablet 1 tab(s) orally once a day , Taking buPROPion HCl ER (XL) 300 MG Tablet Extended Release 24 Hour 1 tab(s) orally every 24 hours , Medication List reviewed and reconciled with the patient * Allergies: A mpicillin, KEFLEX, Macrobid, TRINALIN, Cipro, GANTRISIN, Lidocaine: seizure, SARAFEM, ERYC, Erythromycin, Zithromax, Mucinex, MOST ANTIBIOTICS. Objective: * Vitals: N urse: be, Pain: 3, Temp: 98.3, RR: 14, HR: 80, BP: 122/80, Ht: 64, Wt: 140, BMI:24.03. * Examination: G eneral Examination: General P leasant and Cooperative, NAD on RA,. Heart: R egular Rate and Rhythm, no murmur, rubs or gallops. Lungs: L CTAB, No wheezes, crackles or rhonchi, Good air movement,. Abdomen: i ncreased tenderness to palpation of suprapubic area and mild discomfort in the LLQ with no ttp in the upper abdomen or RLQ. Skin: w ithout acute rashes. Assessment: * Assessment: 1. L mary abdominal pain - R10.30 (Primary) 2 . T ype 2 diabetes mellitus with other specified complication - E11.69 h Plan: * Treatment: Value Reference Range C olor/Clarity yellow * L euk neg * N itrite neg * U robili 0.2 * P rotein neg * p H 5.5 * B lood trace-intact * S p. Gr. 1.015 * K etone trace * B beck neg * G lucose >1000 ?Imaging: CT Scan : Abdomen/Pelvis stone protocol* Anne Marie Miller 12/20/2024 11:02:53 AM EDT > Without contrast- [id number] * Notes: - notes 2 days of increased lower abdominal pain and fullness/pressure, notes one bowel movement yesterday or small volume but otherwise normal consistency, notes taking one time metamucil yesterday - denies fevers, vomiting, bloody bowl movements, painful or burning urination, blood in urine, no abnormal vaginal discharge or bleeding per patient - Given pain with tenderness on palpation of suprapubic area ordered UA and negative for infection but did demonstrate trace blood on sample - will order CT A/P stone protocol to rule out stone - if negative and pain persists will have patient take laxative to help with constipation, if concerning findings on CT could further evaluate fordiverticulitis ??2.?Type 2 diabetes mellitus with other specified complication? Notes: pt currently on invokana 100mg urine microscopy done 04/2023, and A1c 7% 11/2024 denies issues with UTIs or fungal infections currently ?? * Procedure Codes: 8 1002 URINALYSIS, Modifiers: QW , G2211 Complex e/m visit add on * Follow Up: p rn * * Sign off status: Completed true * Provider: Iván Terrell MD Date: 0 12/20/2024 Generated for Arsen ward/Maral/eTransmitting on: 12/20/2024 01:06 PM EDT History and Physical Notes * HPI (History of Present Illness) Category Sub-Category Detail Notes Category Not es gen Patient notes t shahram she is having two days of increased lower abdominal pain. She denies fevers, chills or vomiting but has noticed increased nausea. She denies temporal relation of abdominal pain to meals but does not it becomes more bothersome at the end of the day. She denies heavy lifting, blood in stool or urine, painful or burning urination. She notes she is passing gas and had one bowel movement yesterday morning but was small volume and otherwise normal. She endorses an increase in pressure in the lower abdomen at this time. Examination Category Sub-Category Detail Notes Category Not es General Examination Heart: Regular Rate and Rhythm, no murmur, rubs or gallops Lungs: LCTAB, No wheezes, c rackles or rhonchi, Good air movement, Abdomen: increased tenderness to palpation of suprapubic area and mild discomfort in the LLQ with no ttp in the upper abdomen or RLQ Skin: without acute rashes General Pleasant and Coopera tive, NAD on RA,
--- NOTE | 2024-12-20 13:05 | CT_ITS ---
FINAL REPORT TECHNIQUE: Noncontrast CT exam of the abdomen and pelvis. This study was performed with techniques to keep radiation doses as low as reasonably achievable (ALARA). Individualized dose reduction techniques using automated exposure control or adjustment of mA and/or kV according to the patient''s size were employed. CLINICAL HISTORY: .LEFT SIDED ABD PAIN AND PRESSURE COMPARISON: none FINDINGS: Abdomen: Lung bases are clear. There is fatty infiltration of the liver. The remaining solid abdominal organs are unremarkable. The gallbladder is negative. Bowel is unremarkable. Pelvis: There is stranding surrounding the proximal sigmoid colon, particularly dominant diverticula compatible with diverticulitis. No evidence of abscess or obstruction. Bladder is unremarkable. There is incidental note made of bilateral ovarian masses. The left ovary measures up to 5.5 cm. Right ovary measures up to 4.4 cm. The uterus is unremarkable. IMPRESSION: Findings compatible with mild uncomplicated sigmoid diverticulitis. Incidental bilateral ovarian masses. Recommend pelvic ultrasound follow-up. Reviewed, Interpreted and Dictated by Moshe Combs MD Transcribed by Terrie Echeverria Authenticated and [facility]
--- NOTE | 2024-12-20 13:06 | MM_ITS ---
PROCEDURE INFORMATION: Exam: MG Bilateral Screening 3D Mammography Exam date and time: 12/20/2024 1:23 PM Age: 69 years old Clinical indication: Screening exam. TECHNIQUE: Imaging protocol: Bilateral Screening tomosynthesis and 2D mammography including computer-aided detection (CAD) when performed. COMPARISON: 1. MG MM DIG SCREENING MAMM BI W/CAD 11/04/2023 8:16 AM 2. MG MM DIG SCREENING MAMM BI W/CAD 06/16/2020 10:28 AM FINDINGS: MAMMOGRAPHY: Breast composition: There are scattered areas of fibroglandular density. Mass: No suspicious masses. Architectural distortion: None. Calcifications: No suspicious calcifications. Asymmetric density: None. Skin thickening: None. Axillary adenopathy: None. IMPRESSION: No mammographic evidence of malignancy. Annual screening is recommended unless otherwise clinically indicated. ASSESSMENT: BI-RADS Category 1: Negative.
--- NOTE | 2024-12-20 13:06 | XR_ITS ---
FINAL REPORT CLINICAL HISTORY: screening COMPARISON: None FINDINGS: Using L1-4, the bone mineral density of the spine is 0.911 g/cm2, corresponding to T-score of -1.2. Using the left hip, the bone mineral density of the femoral neck is 0.548 g/cm2, corresponding to a T-score of -2.7. Using the right hip, the bone mineral density of the femoral neck is 0.575 g/cm2, corresponding to a T-score of -2.5. NOTE: T-score: Standard deviation compared with peak bone mass of young adult mean. *Following the recommendations of the International Society of Bone densitometry, classification of hip BMD is based on the lower of two T-scores; total hip or femoral neck. IMPRESSION: Diminished bone mineral density of the lumbar spine consistent with osteopenia. Diminished bone mineral density of the bilateral femoral necks consistent with osteoporosis. Reviewed, Interpreted and Dictated by Moshe Combs MD Transcribed by Heather Ribera Authenticated and . [facility]
--- OUTSIDE RECORDS SUMMARY | 2024-12-20 13:06 | XMS_ITS | Patient Health Record ---
Author Organization [facility] Address [address] [place] [address] Care Team Providers Care Senior Outside Sales Representative Name Role Phone Stefany Max Primary Care Provider John Terrell Unavailable [phone] Migration, Provider Unavailable Unavailable Allergies Allergen (clinical [...] PM Interpretation: Performing Lab:SONI, [facility] Lawrencee[address] [facility], Butch BravoNbznLM[address] Luigi Mahoney Notes/Report: NON-FASTING; NON-FASTING; NON-FASTING; NON-FASTING; NON-FAST FASTING:YES FASTING: YES CHOLESTEROL, TOTAL 140 <200 mg/dL HDL CHOLESTEROL 53 > OR = 50 mg/dL TRIGLYCERIDES 193 <150 mg/dL LDL-CHOLESTEROL 61 Reference range: <100 Desirable range <100 mg/dL for primary prevention; <70 mg/dL for patients with CHD or diabetic patients with > or = 2 CHD risk factors. LDL-C is now calculated using the Roddy-Lerma calculation, which is a validated novel method providing better accuracy than the Friedewald equation in the estimation of LDL-C. Roddy SS et al. ISABELA. 2013;310(19): 0795-2525 (http://education.Cadent/faq/NVB023) CHOL/HDLC RATIO 2.6 <5.0 (calc) NON HDL CHOLESTEROL 87 <130 mg/dL (calc) For patients with diabetes plus 1 major ASCVD risk factor, treating to a non-HDL-C goal of <100 mg/dL (LDL-C of <70 mg/dL) is considered a therapeutic option. COMPREHENSIVE METABOLIC CHACHO Whitehead ([id number]) Reviewed date:12/02/2024 02:39:52 PM Interpretation: Performing Lab:SONI [facility] Lawrencee1355 [facility] Butch TimAtdvCJ[address] Luigi Mahoney Notes/Report: NON-FASTING; NON-FASTING; NON-FASTING; NON-FASTING; [...] Reviewed date:12/02/2024 02:39:52 PM Interpretation: Performing Lab:SONI [facility]-Archivase1355 [facility]fox, [facility] HospitalOimvBM[address] Luigi Mahoney Notes/Report: NON-FASTING; NON-FASTING; NON-FASTING; NON-FASTING; [...] MPV 10.3 7.5-12.5 fL ABSOLUTE NEUTROPHILS [phone] cells/uL ABSOLUTE LYMPHOCYTES 2203 850-3900 cells/uL ABSOLUTE MONOCYTES 527 200-950 cells/uL ABSOLUTE EOSINOPHILS 130 15-500 cells/uL ABSOLUTE BASOPHILS 89 0-200 cells/uL NEUTROPHILS 63.6 LYMPHOCYTES 27.2 MONOCYTES 6.5 EOSINOPHILS 1.6 BASOPHILS 1.1 HEMOGLOBIN A1c (496) Reviewed date:12/02/2024 02:39:52 PM Interpretation: Performing Lab:SONI [facility]-Archivase1355 [address] [place], [facility] HospitalZqklDI[address] Luigi Mahoney Notes/Report: NON-FASTING; NON-FASTING; NON-FASTING; NON-FASTING; [...] 306) Reviewed date:12/02/2024 02:39:52 PM Interpretation: Performing Lab:CB, [facility] Gwlf8918 [facility], [facility] HealthZcooUR[address] Luigi Mahoney Notes/Report: NON-FASTING; NON-FASTING; NON-FASTING; NON-FASTING; [...] D, (D2,D3), LC/MS/MS is recommended: order code 99372 (patients >2yrs). See Note 1 Note 1 For additional information, please refer to http://education.PassionTag/faq/FFH878 (This link is being provided for informational/ educational purposes only.) Urinalysis Reviewed date:12/20/2024 11:11:16 AM Interpretation: Performing Lab: Notes/Report: Color/Clarity yellow Leuk neg Nitrite neg Urobili 0.2 Protein neg pH 5.5 Blood trace-intact Sp. Gr. 1.015 Ketone trace Bili neg Glucose >1000 CAROTID DUPLEX Reviewed date:05/11/2024 08:07:18 AM Interpretation: Performing Lab: Notes/Report: [address] [place] [address] Name: PATY RODRIGUEZ Exam Date: 05/07/2024 : 1955 Age 68 years Gender: F Physician: STEFANY MAX Facility: [facility] Facility HSV: Outpatient Exam: CAROTID DUPLEX Carotid duplex-bilateral. INDICATION: Previous occipital stroke. Postural dizziness. B-mode, color Doppler and spectral Doppler evaluation. FINDINGS: Right proximal common carotid artery PSV 58 cm/s. EDV 16 cm/s Right distal common carotid artery PSV 61 cm/s. EDV 18 cm/s Right proximal ICA PSV 68 cm/s. EDV 20 cm/s Right mid ICA PSV 64 cm/s. EDV 21 cm/s Right distal ICA PSV 76 cm/s. EDV 26 cm/s Right ECA PSV 103 cm/s. EDV 16 cm/s Right subclavian artery PSV 85 cm/s. EDV 15 cm/s Right ICA/CC ratio 1.24 B-mode imaging demonstrates calcified plaque at the right ECA. No associated aliasing. Low Profile calcified plaque formation in the proximal ICA. No associated aliasing. Expected monophasic waveforms. Left proximal common carotid artery PSV 79 cm/s. EDV 18 cm/s Left distal common carotid artery PSV 80 cm/s. EDV 23 cm/s Left proximal ICA PSV 42 cm/s. EDV 15 cm/s Left mid ICA PSV 80 cm/s. EDV 27 cm/s Left IC distal ICA PSV 70 cm/s. EDV 23 cm/s Left ECA PSV 117 cm/s. EDV 17 cm/s Left subclavian PSV 72 cm/s. EDV 16 cm/s. ICA/CCA ratio 1.0 B-mode imaging demonstrates minimal plaque formation in the posterior left ICA. No associated aliasing. Expected monophasic waveforms. IMPRESSION: Atherosclerotic vascular disease, as described above. According to SRU criteria, no evidence of hemodynamically significant stenosis identified within the internal carotid arteries, bilaterally. Electronically signed by: Samara Dunbar MD 05/09/2024 10:08 PM [facility] Dictated By: SAMARA DUNBAR Transcribed By: Transcribed On: 05/07/2024 10:12 AM Electronically signed by: SAMARA DUNBAR 05/07/2024 Thank you for referring PATY RODRIGUEZ to [facility]. Legally authenticated by MICHELA PASCUAL 2024-05-07 10:12:00 Microalbumin (In-House) Reviewed date:05/03/2024 06:33:56 PM Interpretation:Normal Performing Lab: Notes/Report: Normal ALB 30mg/L CRE 200mg/dL A:C <30mg/g LIPID PANEL, STANDARD (7600) Reviewed date:05/05/2024 08:47:43 AM Interpretation: Performing Lab:SONI [facility] Wsaq4737 [address] [place], CamiantXvbkPO[address] Luigi Mahoney Notes/Report: NON-FASTING; NON-FASTING; NON-FASTING FASTING:YES FASTING: YES CHOLESTEROL, TOTAL 135 <200 mg/dL HDL CHOLESTEROL 54 > OR = 50 mg/dL TRIGLYCERIDES 166 <150 mg/dL LDL-CHOLESTEROL 57 Reference range: <100 Desirable range <100 mg/dL for primary prevention; <70 mg/dL for patients with CHD or diabetic patients with > or = 2 CHD risk factors. LDL-C is now calculated using the Roddy-Lerma calculation, which is a validated novel method providing better accuracy than the Friedewald equation in the estimation of LDL-C. Roddy SS et al. ISABELA. 2013;310(19): 2637-6387 (http://education.Cadent/faq/UFG097) CHOL/HDLC RATIO 2.5 <5.0 (calc) NON HDL CHOLESTEROL 81 <130 mg/dL (calc) For patients with diabetes plus 1 major ASCVD risk factor, treating to a non-HDL-C goal of <100 mg/dL (LDL-C of <70 mg/dL) is considered a therapeutic option. COMPREHENSIVE METABOLIC PANE L (84523) Reviewed date:05/05/2024 08:47:43 AM Interpretation: Performing Lab:SONI [facility] Xqjl6860 [address] [place], CamiantSveeKX[address] Luigi Mahoney Notes/Report: NON-FASTING; NON-FASTING; NON-FASTING FASTING:YES FASTING: YES GLUCOSE 201 65-99 mg/dL Fasting reference interval For someone without known diabetes, a glucose value >125 mg/dL indicates that they may have diabetes and this should be confirmed with a follow-up test. UREA NITROGEN (BUN) 19 7-25 mg/dL CREATININE 0.91 0.50-1.05 mg/dL EGFR 69 > OR = 60 mL/min/1.73m2 BUN/CREATININE RATIO SEE NOTE: 6-22 (calc) Not Reported: BUN and Creatinine are within reference range. SODIUM 139 135-146 mmol/L POTASSIUM 4.0 3.5-5.3 mmol/L CHLORIDE 105 98-110 mmol/L CARBON DIOXIDE 23 20-32 mmol/L CALCIUM 9.1 8.6-10.4 mg/dL PROTEIN, TOTAL 7.3 6.1-8.1 g/dL ALBUMIN 4.3 3.6-5.1 g/dL GLOBULIN 3.0 1.9-3.7 g/dL (calc) ALBUMIN/GLOBULIN RATIO 1.4 1.0-2.5 (calc) BILIRUBIN, TOTAL 0.3 0.2-1.2 mg/dL ALKALINE PHOSPHATASE 77 37-153 U/L AST 18 10-35 U/L ALT 23 6-29 U/L HEMOGLOBIN A1c (496) Reviewed date:05/05/2024 08:47:43 AM Interpretation: Performing Lab:CB, [facility] [address], Wel[facility] HealthBjihBE[address] Luigi Mahoney Notes/Report: NON-FASTING; NON-FASTING; NON-FASTING FASTING:YES FASTING: YES HEMOGLOBIN A1c 7.0 <5.7 % of total Hgb For someone without known diabetes, a hemoglobin [...] A1c for diagnosis of diabetes for children. Reason For Referral Reason Carotid Doppler Diagnosis 1 Occipital stroke (I6 3.9) Referral Organization [facility] Referring Provider First Name Stefany Referring Provider Last Name Gala Referring Provider Speciality Family Pra ctice Referred Organization [facility] [place],[address], Referred Provider Specialty Diagnostic R adiology General Notes Cindi Chavez 2024 11:18:04 AM >no precert needed- Sent to [facility] to schedule appt. Referral Priority Routine Reason Dermatology Referral - Dr. Willis Diagnosis 1 Keratosis (L57.0) Referral Organization [facility] Referring Provider First Name John Referring Provider Last Name Nidhi Referring Provider Speciality Internal edicine Referred Organization [facility] Referred Address [address] [place] [id number], Referred Provider Specialty Dermatology General Notes Cindi Chavez 2024 12:28:59 PM >sent to Dr. Willis Referral Priority Routine Reason [facility] ent... hoarsenes s, ex smoker Diagnosis 1 Hoarseness (R49.0) Referral Organization [facility] Referring Provider First Name John Referring Provider Last Name Nidhi Referring Provider Speciality Internal edicine Referred Organization [facility] Referred Address [address] [place] [id number],[place] Referred Provider Specialty Otology, Lar yngology, Rhinology General Notes Cindi Chavez 2024 04:28:08 PM >Sent to ENT Referral Priority Routine Medications Medication SIG (Take, Route, Frequency, Duration) Notes Start Date End Date Status Omeprazole 20 MG 1 cap orally twice a day; Duration: 90 days Active Invokana 100 mg TAKE ONE TABLET BY M OUTH EVERY DAY; Duration: 90 Active buPROPion HCl ER (XL) 300 MG 1 tab(s) orally every 24 hours; Duration: 90 days Active Lisinopril 10 MG 1 tab(s) orally once a day; Duration: 90 days Active Arnuity Ellipta 100 MCG/ACT 1 puff(s) in haled every 24 hours; Duration: 90 days 11/12/2023 Active Aspirin Low Dose 81 MG 1 tab(s) chewed o nce a day; Duration: 90 days Active Rosuvastatin Calcium 10 MG TAKE 1 TABLET EVERY DAY; Duration: 90 Active Immunizations Vaccine Route Administration Date Status Comme nts Prevnar PCV-20 (Pneumococcal conjugate 20) IM Intramuscular 10/08/2023 Administered Pneumovax 23 IM Intramuscular 02/06/2021 Administered Boostrix IM Intramuscular 10/08/2023 Administered Social History Tobacco Use: Social History Observation Description Date Details (start date - stop date) Former Smoker NA - NA Smoking: Question Answer Notes Are you a: former smoker How long has it been since you last smoked? 1-5 years Problems Problem Type SNOMED Code ICD Code Onset Dates Problem Status W/U Status Risk Notes Problem Type 2 diabetes mellitus with other specified complication (E11.69) Active confirmed Problem Generalized anxiety disorder (83627577) Generalized anxiety disorder (F41.1) Active confirmed Problem Nicotine dependence (65288709) Personal history of nicotine dependence (Z87.891) Active confirmed Problem Anxiety (78848268) Anxiety (F41.9) Active confi rmed Problem Essential hypertension (18968674) Essential hypertension (I10) Active confirmed Problem Gastroesophageal reflux disease (167952138) GERD without esophagitis (K21.9) Active confirmed Problem Idiopathic peripheral neuropathy (74103627) Idiopathic peripheral neuropathy (G60.9) Active confirmed Problem Hyperlipidemia (23512180) Hyperlipidemia, unspecified (E78.5) Active confirmed Problem Lower abdominal pain (80883592) Lower abdominal pain (R10.30) Active confirmed Problem Pulmonary emphysema (25351225) Pulmonary emphysema, unspecified emphysema type (J43.9) Active confirmed Problem Abnormal mammogram (899635283) Abnormal mammogram (R92.8) Active confirmed Problem Age-related osteoporosis (070899760) Osteoporosis without current pathological fracture, unspecified osteoporosis type (M81.0) Active confirmed Problem 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, 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) Active confirmed Problem Cerebral infarction (314316020) Occipital stroke (I63.9) Active confirmed Vital Signs Heart Rate 80 /min 12/20/2024 Temperature 98.3 degrees Fahrenheit 12/20/2024 Blood pressure diastolic 80 mm Hg 12/20/2024 Height 64 in 12/20/2024 Blood pressure systolic 122 mm Hg 12/20/2024 Weight 140 lbs 12/20/2024 BMI 24.03 kg/m2 12/20/2024 Encounters Encounter Location Date Provider Diagnosis [facility] [address] [place] [address] 07/10/2024 Provider Migration Type 2 diabetes mellitus with other specified complication E11.69 [facility] [address] [place] [address] 01/21/2024 John Terrell Essential hypertension I10 [facility] [address] [facility] [address] [place], [place] [address] 02/04/2024 John Terrell Postural dizziness R42 [facility] [address] [facility] [address] [place], [place] [address] 05/03/2024 John Terrell Type 2 diabetes mellitus with other specified complication E11.69 ; Hyperlipidemia, unspecified E78.5 ; Essential hypertension I10 and Sequela, post-stroke I69.30 [facility] [address] [facility] [address] [place], [place] [address] 11/29/2024 John Terrell Essential hypertension I10 ; Abnormal mammogram R92.8 ; Osteoporosis without current pathological fracture, unspecified osteoporosis type M81.0 ; Type 2 diabetes mellitus with other specified complication E11.69 ; Keratosis L57.0 ; GERD without esophagitis K21.9 ; Hoarseness R49.0 ; Hyperlipidemia, unspecified E78.5 and Routine medical exam Z00.00 [facility] [address] [facility] [address] [place], [place] [address] 12/20/2024 John Terrell Type 2 diabetes mellitus with other specified complication E11.69 and Lower abdominal pain R10.30 [facility] [place] [address] [place] [address] 04/26/2024 John Terrell Small airways diseas e J98.4 [facility] [address] [place] [address] 05/03/2024 [facility] Occipital stroke I63.9 and Postural dizziness R42 [facility] [address] [facility] [address] [place], [place] [address] 10/15/2024 [facility] [address] [facility] [place], [place] [address] 11/30/2024 [facility] Visit for screening mammogram Z12.31 and Asymptomatic menopause Z78.0 Assessments Encounter Date Diagnosis (ICD Code) Assessment Notes Treatment Notes Treatment Clinical Notes Section Notes 01/21/2024 Essential hypertension (ICD-10 - I10) Symptoms are usually provoked when changing position from bending to sitting or sitting to standing. Orthostatic vitals suggestive of orthostatic component to lightheadedness. These vitals were taken before she had taken her lisinopril 20mg this morning which suggests her BP would have been lower if she had taken her lisinopril this AM. Plan - decrease lisinopril to 10mg daily. F/u in 2 weeks 02/04/2024 Postural dizziness (ICD-10 - R42) No significant change in symptoms with lower dose of lisinopril. Orthostatic vitals normal today. Will order bilateral carotid artery duplex to rule out symptomatic stenosis. Also will trial Flonase. If duplex normal and no improvement with Flonase, will consider referral to ENT. 04/26/2024 Small airways disease (ICD-10 - J98.4) 05/03/2024 Type 2 diabetes mellitus with other specified complication (ICD-10 - E11.69) Chronic. On Invokana. Continue current regimen. Microalbumin performed in house and results were personally reviewed. Will draw A1C and adjust medications if necessary. 05/03/2024 Hyperlipidemia, unspecified (ICD-10 - E78.5) Chronic. On rosuvastatin. Continue current regimen. Will draw lipid panel and review results personally. 05/03/2024 Occipital stroke (ICD-10 - I63.9) 07/10/2024 Type 2 diabetes mellitus with other specified complication (ICD-10 - E11.69) 11/29/2024 Essential hypertension (ICD-10 - I10) bp well maintained on lisinopril 10mg lisinopril 10 mg sent to pharmacy today 11/29/2024 Abnormal mammogram (ICD-10 - R92.8) mammogram orders sent today 11/30/2024 Visit for screening mammogram (ICD-10 - Z12.31) 12/20/2024 Type 2 diabetes mellitus with other [...] CT could further evaluate for diverticulitis h 11/30/2024 Asymptomatic menopause (ICD-10 - Z78.0) 11/29/2024 Osteoporosis without current pathological fracture, unspecified osteoporosis type (ICD-10 - M81.0) last dexa scan 2018 Labs ordered today, I will personally review labs 05/03/2024 Postural dizziness (ICD-10 - R42) 05/03/2024 Essential hypertension (ICD-10 - I10) BP well-controlled in office today. On lisinopril. Continue current regimen. 11/29/2024 Type 2 diabetes mellitus with other specified complication (ICD-10 - E11.69) pt currently on invokana 100mg labs drawn today, I will personally review urine microscopy done 04/2023, reviewed those labs today 11/29/2024 Keratosis (ICD-10 - L57.0) Dermatology referral sent 05/03/2024 Sequela, post-stroke (ICD-10 - I69.30) 11/29/2024 GERD without esophagitis (ICD-10 - K21.9) [...] denies flu shot pt reports good mood 05/03/2024 Other Patient reports not being contacted for her carotid ultrasound. Will send a referral to [facility]. Follow up in 3 months Plan Of Treatment Pending Test Test Name Order Date Ultrasound : Carotids 02/04/2024 Mammogram : Diagnostic 11/29/2024 DEXA Hip and Spine - Screening CT Scan : Abdomen/Pelvis stone protocol 12/20/2024 Mammogram : Bilateral 03/09/2019 Mammogram : Bilateral 11/30/2024 CT Scan : Abdomen and Pelvis with contra st 10/02/2015 H-CBC with AUTO DIFF 10/02/2015 H-CMP 10/02/2015 C-CMP 04/13/2020 C-LIPID PANEL 04/13/2020 C-THYROID PROFILE 10/26/2018 C-URINE CULTURE 04/17/2020 Echocardiogram - Bubble Study 07/20/2018 Urine Culture, Routine 02/19/2017 Rapid Flu, A 11/18/2016 Rapid Flu, B 11/18/2016 M-Basic Metabolic Panel 11/12/2023 M-Thyroid Stimulating Hormone 09/11/2023 M-Vitamin B12 09/10/2023 M-Vitamin D 25 Hydroxy 09/10/2023 M-Vitamin D 25 Hydroxy 11/07/2020 CT Scan : Chest, Lung Cancer Screening 0 06/20/2020 CAROTID DUPLEX 05/03/2024 Future Test Test Name Order Date C-CBC 10/05/2018 C-CMP 10/05/2018 C-LIPID PANEL 10/05/2018 Insurance Providers Payer Name Payer Address Payer Phone Subscriber Number Group Number Insured Name Patient Relationship to Insured Coverage Start Date Coverage End Date [employer] [address] [address] [place] [address] [id number] Paty Rodriguez Self - patient is the insured Medications Administered Medication Instructions Date of Administration Dosage Notes Dexamethasone 4mg Injection 03/16/2021 4 mg Dexamethasone 4mg Injection 08/13/2021 4 mg Dexamethasone 4mg Injection 08/24/2022 4 mg Dexamethasone 4mg Injection 01/21/2023 4 mg Medical (General) History Medical History History ICD Code Anxiety/depression Fibromyalgia Arthritis tobacco use occipital/parietal right-sided stroke Ap ril 2019 negative low-dose CT scan in 03/25 and normal Pap smear March 2019 mammogram June 25 normal and normal 10/06 024 DEXA scan March 2019 of o steoporosis-alendronate started - slightly improved T score in 10/2023 positive cologuard screening March 2019, colonoscopy with isolated hyperplastic polyp Surgical History Surgery Date(Month/Year) x 3 Hospitalization History Reason Date(Month/Year) [facility] 07/2018 above
--- OUTSIDE RECORDS SUMMARY | 2024-12-20 13:06 | XMS_ITS | Clinical Summary ---
Author Organization [facility] Address [address] [place] [address] Care Team Providers Care Box Car Washer Name Role Phone oJhn Terrell MD Primary Care Provider [phone] Social History Tobacco Use Types Packs/Day Years Used Date Smoking Tobacco: Never Assessed Comments Unknown Sex and Gender Information Value Date Recorded Sex Assigned at Not on file Legal Sex Female 7:15 PM EDT Gender Identity Not on file Sexual Orientation Not on file Last Filed Vital Signs Vital Sign Reading Time Taken Comments Blood Pressure 124/72 10/13/2018 2:34 PM EDT Pulse - - Temperature - - Respiratory Rate 16 10/13/2018 2:34 PM EDT Oxygen Saturation - - Inhaled Oxygen Concentration - - Weight 65.1 kg (143 lb 8.3 oz) 10/13/2018 2:34 P M EDT Height 157.5 cm (5' 2 ) 10/13/2018 2:34 PM EDT Body Mass Index 26.25 10/13/2018 2:34 PM EDT Plan of Treatment Not on file Care Teams Box Car Washer Relationship Specialty Start Date End Date John Terrell MD [address] [place] [address] PCP - General 08/18/20
== END 2024-12-20 23:59 | disposition home or self-care (01) ==
LOC: RAD 13:03
PROVIDERS: PCP Internal Medicine Adolescent Medicine; Visit Provider Nurse Practitioner Family
DX: Z12.31 Encounter for screening mammogram for malignant neoplasm of breast (principal); N83.8 Other noninflammatory disorders of ovary, fallopian tube and broad ligament; R92.323 Mammographic fibroglandular density, bilateral breasts; R93.7 Abnormal findings on diagnostic imaging of other parts of musculoskeletal system; R93.3 Abnormal findings on diagnostic imaging of other parts of digestive tract; R10.30 Lower abdominal pain, unspecified; Z78.0 Asymptomatic menopausal state
CPT/HCPCS: 74176; 77063; 77067; 77080